=== PATIENT | male | born 1960 | race Caucasian/White ===

== ENCOUNTER 2017-09-04 15:43 | Emergency (ER) | payer OTHER ==
[2017-09-04] MEDS ORDERED: Acetaminophen/HYDROcodone 325-5 MG Tab PO STA (16:24)
--- NOTE | 2017-09-04 16:25 | EDM.PDOC ---
ED HPI GENERAL MEDICAL PROBLEM - General Chief Complaint: Lower Extremity Injury/Pain Stated Complaint: R ANKLE INJURY Time Seen by Provider: 09/04/17 16:20 Source of Information: Reports: Patient History Limitations: Reports: No Limitations - History of Present Illness INITIAL COMMENTS - FREE TEXT/NARRATIVE: The patient states that he slipped on ice without falling around 10:00 this morning. At the time, he felt a pop in his Achilles tendon area. He noticed swelling to the lateral aspect of his ankle around 11:00. He applied ice and took a nap. When he got up around 14:30, he felt like there was something loose in his ankle. No prior right ankle injury. The patient is otherwise uninjured. The patient's PCP is Dr. Ashraf. Right Ankle Pain Score (Numeric/FACES): 8 - Related Data Allergies Allergy/AdvReac Type Severity Reaction Status Date / Time No Known Allergies Allergy Verified 09/04/17 15:55 Past Medical History HEENT History: Reports: Impaired Vision Other HEENT History: wears glasses Cardiovascular History: Reports: Hypertension Endocrine/Metabolic History: Reports: Diabetes, Type II Social & Family History - Tobacco Use Smoking Status *Q: Never Smoker - Caffeine Use Caffeine Use: Reports: Coffee, Tea - Alcohol Use Alcohol Use History: No - Recreational Drug Use Recreational Drug Use: No - Living Situation & Occupation Living situation: Reports: , with Spouse 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 ED EXAM, GENERAL - Physical Exam Exam: See Below Exam Limited By: No Limitations General Appearance: Alert, WD/WN, No Apparent Distress Extremities: Other (Considerable swelling over the lateral malleolus of the right ankle, with subtle ecchymosis, but no erythema or abrasion. The area of swelling is tender to palpation. Pain is induced and ankle with PROM. There is NO tenderness to palpation of the Achilles tendon or posterior calf musculature. The right foot is in normal anatomic position and not inwardly rotated. Neurovascular status of the right lower extremity is intact.) Course - Vital Signs Last Recorded V/S: Last Vital Signs Temp 35.7 C 09/04/17 15:56 Pulse 97 09/04/17 15:56 Resp 16 09/04/17 15:56 BP 146/86 H 09/04/17 15:56 Pulse Ox 96 09/04/17 15:56 - Orders/Labs/Meds Orders: Active Orders 24 hr Category Date Time Status DME for Discharge [COMM] Stat Oth 09/04/17 17:38 Ordered Meds: Medications Discontinued Medications Generic Name Dose Route Start Last Admin Trade Name Charles PRN Reason Stop Dose Admin Hydrocodone Bitart/Acetaminophen 2 tab 09/04/17 16:24 09/04/17 16:32 [facility] 325-5 Mg PO 09/04/17 16:25 2 tab ONETIME STA Administration - Re-Assessments/Exams Free Text/Narrative Re-Assessment/Exam: 09/04/17 16:51 4-view radiographs of the right ankle appear to demonstrate a subtle fracture to the lateral aspect of the distal tibia, however, I have asked that Dr. Garza review the images. 09/04/17 17:37 4-view radiographs of the right ankle is read by Dr. Garza as: 1. Soft tissue swelling and other incidental findings. No definite acute bony abnormality is identified on right ankle study. 09/04/17 17:39 An Air Cast has been ordered for the right ankle. 09/04/17 17:40 The patient states that he is off for the next 4 days, and therefore does not need a note for work. Departure - Departure Time of Disposition: 17:40 Disposition: Home, Self-Care 01 Condition: Good Clinical Impression: Right ankle sprain - Discharge Information Referrals: Ivana Ashraf [Primary Care Provider] - Santiago Arguelles MD [Physician] - Forms: ED Department Discharge Additional Instructions: You were seen in the emergency room after slipping and injuring your right ankle. Workup in the ER included x-rays of your right ankle. No broken bones were found. You have sprained your right ankle. An Aircast was placed on your right ankle. Apply this each morning, and remove at bedtime. Elevate and ice your right ankle is much as possible over the next 2 days, to help minimize swelling. Take oarg-[id number] ibuprofen, 2-3 tablets (400-600 mg) every 8 hours, with food, as needed for discomfort. Stop wearing the Aircast in about a week. At that time, you should still expect to have some discomfort, but not severe. If it is still very uncomfortable, please follow-up with the orthopedic surgeon Dr. Blane. If any other problems, please do not hesitate to return to the ER. - My Orders Last 24 Hours: My Active Orders 09/04/17 17:38 DME for Discharge [COMM] Stat - Assessment/Plan Last 24 Hours: My Active Orders 09/04/17 17:38 DME for Discharge [COMM] Stat
--- NOTE | 2017-09-04 17:23 | CR ---
Right ankle: 4 views of the right ankle were obtained. Mild soft tissue swelling is seen. Well-corticated bony density is noted off the dorsal navicular bone which may represent an old fracture. Vascular calcification is seen. Ankle mortise is symmetric. No acute fracture is appreciated within the right ankle. Impression: 1. Soft tissue swelling and other incidental findings. No definite acute bony abnormality is identified on right ankle study. Diagnostic code #2
== END 2017-09-04 18:07 | disposition home or self-care (01) ==
LOC: JD.ED 15:43
DX: S93.401A Sprain of unspecified ligament of right ankle, initial encounter (principal); I10 Essential (primary) hypertension; E11.9 Type 2 diabetes mellitus without complications; W18.49XA Other slipping, tripping and stumbling without falling, initial encounter
CPT/HCPCS: 73610; 99283; A9270